=== PATIENT | male | born 1955 | race Caucasian/White ===

== ENCOUNTER 2023-04-23 16:30 | Inpatient (IN) | payer MEDICARE, OTHER ==
[2023-04-23] MEDS ORDERED: NITROGLYCERIN SL TABS 0.4 MG TAB SUBLINGUAL PRN (16:45)
[2023-04-23] MEDS ORDERED: HEPARIN SODIUM 1,000 UN/ML (10ML VL) IV PRN (16:47)
--- NOTE | 2023-04-23 16:55 | ED ---
General Adult HPI - General Chief complaint: Chest Pain Stated complaint: Chest Pain, Abn Labs Time Seen by Provider: 04/23/23 16:32 Source: EMS, RN notes reviewed, old records reviewed Mode of arrival: EMS Limitations: no limitations - History of Present Illness Initial comments: 67-year-old male transferred from outside hospital with chief complaint of chest pain and non-ST segment elevated IL with elevated troponin at 0.28 from outside hospital. Patient states he went to the hospital this morning around 10 AM with central left-sided chest pain. He has no prior history of coronary artery disease. He states he was given nitroglycerin and started on heparin and his pain is completely resolved at this time. He denies associated diaphoresis or vomiting. - Related Data Allergies Allergy/AdvReac Type Severity Reaction Status Date / Time No Known Allergies Allergy Verified 04/23/23 16:45 Review of Systems ROS Statement: Those systems with pertinent positive or pertinent negative responses have been documented in the HPI. ROS Other: All systems not noted in ROS Statement are negative. Past Medical History Past Medical History: Hyperlipidemia, Hypertension Past Surgical History: No Surgical Hx Reported Past Psychological History: No Psychological Hx Reported Smoking Status: Never smoker Past Alcohol Use History: None Reported Past Drug Use History: None Reported General Exam Limitations: no limitations General appearance: alert, in no apparent distress Head exam: Present: atraumatic, normocephalic Eye exam: Present: normal appearance, PERRL ENT exam: Present: normal exam Neck exam: Present: normal inspection. Absent: tenderness Respiratory exam: Present: normal lung sounds bilaterally. Absent: respiratory distress, wheezes Cardiovascular Exam: Present: regular rate, normal rhythm GI/Abdominal exam: Present: soft. Absent: distended, tenderness, guarding Extremities exam: Present: normal inspection, normal capillary refill Neurological exam: Present: alert, oriented X3, CN II-XII intact. Absent: motor sensory deficit Psychiatric exam: Present: normal affect, normal mood Skin exam: Present: warm, dry, intact. Absent: cyanosis, diaphoretic Course Vital Signs 04/23/23 16:39 Pulse Rate 71 Respiratory 18 Rate Blood Pressure 137/99 O2 Sat by Pulse 95 Oximetry Medical Decision Making - Medical Decision Making Was pt. sent in by a medical professional or institution (, PA, GENERAL FARM MANAGER, urgent care, hospital, or usp...) When possible be specific @ -Transfer from outside hospital with non-ST segment elevated IL Did you speak to anyone other than the patient for history (EMS, parent, family, police, friend...)? What history was obtained from this source @ -No Did you review nursing and triage notes (agree or disagree)? Why? @ -I reviewed and agree with nursing and triage notes Were old charts reviewed (outside hosp., previous admission, EMS record, old EKG, old radiological studies, urgent care reports/EKG's, usp records)? Report findings @ -No old charts were reviewed Differential Diagnosis (chest pain, altered mental status, abdominal pain women, abdominal pain men, vaginal bleeding, weakness, fever, dyspnea, syncope, headache, dizziness, GI bleed, back pain, seizure, CVA, palpatations, mental health, musculoskeletal)? @ -[Differential Chest Pain: Stable Angina, Unstable Angina, STEMI, NSTEMI Aortic Dissection, Pneumothorax, Musculoskeletal, Esophageal Spasm GERD, Cholecystitis, Pancreatitis, Zoster, this is not meant to be an all-inclusive list. EKG interpreted by me (3pts min.). @Sinus rhythm rate of 71, MT interval 152, QRS duration 85, QTC 4:[address] segment changes. X-rays interpreted by me (1pt min.). @ -None done CT interpreted by me (1pt min.). @ -None done U/S interpreted by me (1pt. min.). @ -None done What testing was considered but not performed or refused? (CT, X-rays, U/S, labs)? Why? @ -None What meds were considered but not given or refused? Why? @ -None Did you discuss the management of the patient with other professionals (professionals i.e. , PA, GENERAL FARM MANAGER, lab, RT, psych nurse, older adult social work specialist, umbrella cutter, teacher, highway patrol officer, onsite case manager)? Give summary @ -[facility], and Dr. Leblanc covering for cardiology Was smoking cessation discussed for >3mins.? @ -No Was critical care preformed (if so, how long)? @ -YES, 35 minutes Were there social determinants of health that impacted care today? How? (Homelessness, low income, unemployed, alcoholism, drug addiction, transportation, low edu. Level, literacy, decrease access to med. care, nursing home, rehab)? @ -No Was there de-escalation of care discussed even if they declined (Discuss DNR or withdrawal of care, Hospice)? DNR status @ -No What co-morbidities impacted this encounter? (DM, HTN, Smoking, COPD, CAD, Cancer, CVA, ARF, Chemo, Hep., AIDS, mental health diagnosis, sleep apnea, morbid obesity)? @ -None Was patient admitted / discharged? Hospital course, mention meds given and route, prescriptions, significant lab abnormalities, going to OR and other pertinent info. @ -[67-year-old male presenting as a non-ST segment elevated IL from outside hospital. Patient was started on heparin and he is chest pain-free at the time my evaluation. His troponin prior to transfer was 0.28. This level will be trended. He'll be continued on heparin with repeat laboratory testing pending her patient admitted to internal medicine with cardiology on consult. Undiagnosed new problem with uncertain prognosis? @ -No Drug Therapy requiring intensive monitoring for toxicity (Heparin, Nitro, Insulin, Cardizem)? @ -No Were any procedures done? @ -No Diagnosis/symptom? @ NSTEMI Acute, or Chronic, or Acute on Chronic? @ -[acute Uncomplicated (without systemic symptoms) or Complicated (systemic symptoms)? @ -[complicated Side effects of treatment? @ -No Exacerbation, Progression, or Severe Exacerbation? @ -No Poses a threat to life or bodily function? How? (Chest pain, USA, IL, pneumonia, PE, COPD, DKA, ARF, appy, cholecystitis, CVA, Diverticulitis, Homicidal, Suicidal, threat to staff... and all critical care pts) @ -[yes, ACS - Lab Data Result diagrams: 04/23/23 17:25 Disposition Clinical Impression: Acute non-ST elevation myocardial infarction (NSTEMI) Disposition: ADMITTED IP TO THIS HOSP Condition: Stable Is patient prescribed a controlled substance at d/c from ED?: No Time of Disposition: 18:03
[2023-04-23] MEDS ORDERED: HEPARIN SOD,PORK IN 0.45% NACL 25,000 UNIT in 0.45% NACL 1 250ML.BAG IV SCH (17:00)
[2023-04-23 17:45] LABS: Basophils % (A) 0 %; Eosinophils % (A) 0 %; HCT 42.2 % (39.0-53.0); HGB 14.5 gm/dL (13.0-17.5); Lymphocytes # (A) 2.8 k/uL (1.0-4.8); Lymphocytes % (A) 29 %; MCH 32.8 pg (25.0-35.0); MCHC 34.4 g/dL (31.0-37.0); MCV 95.3 fL (80.0-100.0); Mean Platelet Volume 7.3; Monocytes # (A) 0.4 k/uL (0-1.0); Monocytes % (A) 4 %; Neutrophils # (A) 6.3 k/uL (1.3-7.7); Neutrophils % (A) 64 %; Platelet Count 200 k/uL (150-450); RBC 4.43 m/uL (4.30-5.90); RDW 13.4 % (11.5-15.5); WBC 9.7 k/uL (3.8-10.6)
[2023-04-23 18:11] LABS: Prothrombin Time 11.1 sec (10.0-12.5)
[2023-04-23 18:38] LABS: Partial Thromboplastin Time 159.1 sec (22.0-30.0)
[2023-04-23 18:41] LABS: ALT 54 U/L (4-49); AST 66 U/L (17-59); African American GFR (CKD) >90 (>60 ml/min/1.73 sqM); Alkaline Phosphatase 54 U/L (38-126); Anion Gap 10 mmol/L; Blood Urea Nitrogen 15 mg/dL (9-20); Calcium 8.9 mg/dL (8.4-10.2); Carbon Dioxide 26 mmol/L (22-30); Chloride 100 mmol/L (98-107); Glucose 111 mg/dL (74-99); Magnesium 1.6 mg/dL (1.6-2.3); Non-African American GFR(CKD) >90 (>60 ml/min/1.73 sqM); Potassium 3.8 mmol/L (3.5-5.1); Sodium 136 mmol/L (137-145); Total Bilirubin 0.6 mg/dL (0.2-1.3); Total Protein 6.5 g/dL (6.3-8.2)
[2023-04-24 05:30] LABS: Basophils % (A) 0 %; Eosinophils # (A) 0.1 k/uL (0-0.7); Eosinophils % (A) 1 %; HCT 43.2 % (39.0-53.0); HGB 14.7 gm/dL (13.0-17.5); Lymphocytes # (A) 3.1 k/uL (1.0-4.8); Lymphocytes % (A) 33 %; MCH 32.5 pg (25.0-35.0); MCHC 33.9 g/dL (31.0-37.0); MCV 95.9 fL (80.0-100.0); Mean Platelet Volume 7.7; Monocytes # (A) 0.6 k/uL (0-1.0); Monocytes % (A) 6 %; Neutrophils # (A) 5.5 k/uL (1.3-7.7); Neutrophils % (A) 59 %; Platelet Count 207 k/uL (150-450); RBC 4.51 m/uL (4.30-5.90); RDW 13.5 % (11.5-15.5); WBC 9.4 k/uL (3.8-10.6)
[2023-04-24 06:11] LABS: Prothrombin Time 11.1 sec (10.0-12.5)
[2023-04-24] MEDS ORDERED: LORazepam 1 MG TAB PO PRN ×3 (07:31)
[2023-04-24] MEDS ORDERED: LORazepam 0.5 MG TAB PO PRN (07:31)
--- NOTE | 2023-04-24 07:33 | P.HPIM ---
History of Present Illness This is a pleasant 67 years old male with past medical history of Hyperlipidemia, Hypertension, arthritis Patient was transferred from [facility] for chest pain and has elevated troponin, he arrived on heparin drip He described his pain about 10/10 although currently is completely resolved undergone, started when day earlier, felt like center radiating to the back Patient described pain as break sitting on his chest. With no relieving or precipitating factors His pain was severe for about 10 minutes and then became more tolerable but persistent. Currently denies any urinary symptoms or change in bowel habits. No fever. No chills, no headache dizziness weakness or numbness. Patient denies smoking or illicit drugs. He drinks 2 cups of wine every night Vitas looks stable Labs reviewed showed an unremarkable CBC, basic metabolic panel. LFTs showing mildly elevation. High troponin 6.7, 8.8, 6.9 EKG showing sinus rhythm at [address]-T changes. QTC 415. On reviewing the records from [place] WBC 9.4, hemoglobin 15.2, platelet 202 Sodium 138, potassium 3.5, creatinine 1.0. Glucose is 106. Calcium 9.3. Lipase 101, magnesium 1.6. Bilirubin 0.5, AST 43 and ALT 53. Review of Systems Review of systems CONSTITUTIONAL: No fever, no malaise, no fatigue. HEENT: No recent visual problems or hearing problems. Denied any sore throat. CARDIOVASCULAR: No orthopnea, PND, no palpitations, no syncope. PULMONARY: No shortness of breath, no cough, no hemoptysis. GASTROINTESTINAL: No diarrhea, no nausea, no vomiting, no abdominal pain. Normoactive bowel sounds. NEUROLOGICAL: No headaches, no weakness, no numbness. HEMATOLOGICAL: Denies any bleeding or petechiae. GENITOURINARY: Denies any burning micturition, frequency, or urgency. MUSCULOSKELETAL/RHEUMATOLOGICAL: Denies any joint pain, swelling, or any muscle pain. ENDOCRINE: Denies any polyuria or polydipsia. Past Medical History Past Medical History: Hyperlipidemia, Hypertension History of Any Multi-Drug Resistant Organisms: None Reported Past Surgical History: No Surgical Hx Reported Past Psychological History: No Psychological Hx Reported Smoking Status: Never smoker Past Alcohol Use History: None Reported Past Drug Use History: None Reported Medications and Allergies Home Medications Medication Instructions Recorded Confirmed Type Atorvastatin [Lipitor] 40 mg PO DAILY 04/23/23 04/23/23 History Calcipotriene/Betamethasone 1 applic TOPICAL DAILY PRN 04/23/23 04/23/23 History [Calcipotriene-Betameth Dp Oint] Cholecalciferol [Vitamin D3 (125 125 mcg PO DAILY 04/23/23 04/23/23 History Mcg = 5000 Iu)] Concetta's Leg Cramps Sl Tabs 2 tab SL HS 04/23/23 04/23/23 History Metoprolol Succinate (ER) [Toprol 50 mg PO DAILY 04/23/23 04/23/23 History Xl] Naproxen Sodium [Aleve] 440 mg PO BID PRN 04/23/23 04/23/23 History Omeprazole [PriLOSEC] 20 mg PO DAILY 04/23/23 04/23/23 History Testosterone Cypionate 200 mg IM Q14D 04/23/23 04/23/23 History [Depo-Testosterone] amLODIPine [Norvasc] 10 mg PO DAILY 04/23/23 04/23/23 History buPROPion XL [Wellbutrin XL] 300 mg PO DAILY 04/23/23 04/23/23 History tadalafiL [Cialis] 20 mg PO DIRECTED PRN 04/23/23 04/23/23 History Allergies Allergy/AdvReac Type Severity Reaction Status Date / Time No Known Allergies Allergy Verified 04/23/23 18:53 Physical Exam Vitals: Vital Signs Pulse Resp BP Pulse Ox 04/24/23 03:45 65 18 127/91 95 04/24/23 02:00 73 18 129/87 96 04/24/23 01:00 77 17 133/84 94 L 04/23/23 19:00 76 16 130/90 95 04/23/23 18:45 74 10 L 132/98 95 04/23/23 18:30 77 17 122/88 95 04/23/23 18:15 69 9 L 129/92 95 04/23/23 18:00 130/91 97 04/23/23 17:45 131/94 94 L 04/23/23 17:30 128/89 95 04/23/23 17:15 130/90 96 04/23/23 17:00 129/77 96 04/23/23 16:45 137/99 95 04/23/23 16:43 97 04/23/23 16:39 71 18 137/99 95 Intake and Output 04/23/23 04/24/23 04/24/23 22:59 06:59 14:59 Intake Total 6.667 Balance 6.667 Intake: Intake, IV Titration 6.667 Amount Heparin Sod,Pork in 0.45% 6.667 NaCl 25,000 unit In 0.45 % NaCl 1 250ml.bag @ 9. 585 UNITS/KG/HR 10 mls/hr IV .Q24H [facility] Rx#: [id number] Other: Weight 104.326 kg 104.326 kg GENERAL: The patient is alert and oriented x3, not in any acute distress. Well developed, well nourished. HEENT: Pupils are round and equally reacting to light. EOMI. No scleral icterus. No conjunctival pallor. Normocephalic, atraumatic. No pharyngeal erythema. No thyromegaly. CARDIOVASCULAR: S1 and S2 present. No murmurs, rubs, or gallops. PULMONARY: Chest is clear to auscultation, no wheezing , no crackles. ABDOMEN: Soft, nontender, nondistended, normoactive bowel sounds. No palpable organomegaly. MUSCULOSKELETAL: No joint swelling or deformity. EXTREMITIES: No cyanosis, clubbing, or pedal edema. NEUROLOGICAL: Gross neurological examination did not reveal any focal deficits. SKIN: No rashes. no petechiae. Results CBC & Chem 7: 04/24/23 04:19 04/23/23 17:25 Labs: Abnormal Lab Results - Last 24 Hours (Table) 04/23/23 04/23/23 04/23/23 Range/Units 17:25 17:25 17:25 APTT 159.1 H* (22.0-30.0) sec Sodium 136 L (137-145) mmol/L Glucose 111 H (74-99) mg/dL AST 66 H (17-59) U/L ALT 54 H (4-49) U/L Troponin I 6.780 H* (0.000-0.034) ng/mL 04/23/23 04/24/23 Range/Units 19:59 04:19 APTT (22.0-30.0) sec Sodium (137-145) mmol/L Glucose (74-99) mg/dL AST (17-59) U/L ALT (4-49) U/L Troponin I 8.850 H* 6.900 H* (0.000-0.034) ng/mL Thrombosis Risk Factor Assmnt - Choose All That Apply Any of the Below Risk Factors Present?: Yes Each Factor Represents 1 point: Acute SD, Obesity (BMI >25) Other Risk Factors: Yes Each Risk Factor Represents 2 Points: Age 61-74 years Other congenital or acquired thrombophilia - If yes, enter type in comment: No Thrombosis Risk Factor Assessment Total Risk Factor Score: 4 Thrombosis Risk Factor Assessment Level: Moderate Risk Assessment and Plan Assessment: Chest pain suspicious for a non-STEMI Alcohol use disorder at-risk of alcohol withdrawal Hypertension Hyperlipidemia Arthritis Continue with heparin drip Continue with aspirin Continue with Metoprolol Cardiology consult Labs and medication were reviewed.. Continue same treatment. Continue with symptomatic treatment. Resume home medication. Monitor labs and vitals. DVT and GI prophylaxis. Further recommendations as per clinical course of the patient DVT prophylaxis: heparin GI Prophylaxis: Pepcid Prognosis is guarded
[2023-04-24] MEDS: METOPROLOL SUCCINATE (ER) 50 MG TAB.ER.24H PO SCH (08:36)
[2023-04-24] MEDS: buPROPion XL 300 MG TAB.ER.24H PO SCH (08:36)
[2023-04-24] MEDS: ASPIRIN 325 MG TAB PO SCH (08:36)
[2023-04-24] MEDS: THIAMINE 100 MG TAB PO SCH (08:36)
[2023-04-24] MEDS: FAMOTIDINE 20 MG/2 ML VIAL IV SCH ×2 (08:37→20:27)
[2023-04-24] MEDS: ATORVASTATIN 40 MG TAB PO SCH (08:39)
[2023-04-24] MEDS: NITROGLYCERIN OINT 1 INCH/GM PACKET TOPICAL SCH ×3 (08:42→16:09)
[2023-04-24] MEDS ORDERED: VERAPAMIL 2.5 MG/ML 2 ML AMP ONE (08:49)
[2023-04-24] MEDS ORDERED: LIDOCAINE 1% INJ 10MG/ML (20 ML MDV) ONE (08:49)
[2023-04-24 08:51] LABS: Chol/HDL Ratio 3.42 Ratio; LDL Cholesterol,Calculated 68.8 mg/dL (0.0-131.0)
[2023-04-24] MEDS ORDERED: ASPIRIN 325 MG TAB PO STA (08:52)
[2023-04-24] MEDS ORDERED: ATORVASTATIN 80 MG TAB PO STA (08:52)
[2023-04-24] MEDS ORDERED: ALPRAZolam 0.5 MG TAB PO PRN (08:52)
[2023-04-24] MEDS ORDERED: NITROGLYCERIN SL TABS 0.4 MG TAB SUBLINGUAL PRN (08:52)
[2023-04-24] MEDS ORDERED: ALPRAZolam 0.25 MG TAB PO PRN (08:52)
[2023-04-24] MEDS ORDERED: IV FLUID CONTINUATION 1,000 ML IV ONE (08:59)
[2023-04-24] MEDS ORDERED: HEPARIN SODIUM 1,000 UN/ML (10ML VL) ONE (09:12)
[2023-04-24] MEDS ORDERED: fentaNYL (PF) 50 MCG/ML 2 ML AMP ONE (09:12)
[2023-04-24] MEDS: MIDAZOLAM 2 MG/2 ML VIAL IVP ONE ×2 (09:28→10:25)
[2023-04-24] MEDS: fentaNYL (PF) 50 MCG/1 ML VIAL IVP ONE ×2 (09:28→10:24)
[2023-04-24] MEDS ORDERED: LIDOCAINE 1% INJ 10MG/ML (20 ML MDV) SQ ONE (09:29)
[2023-04-24] MEDS ORDERED: VERAPAMIL SYRINGE (5 MG/10 ML) INTRAARTER ONE (09:33)
[2023-04-24] MEDS: HEPARIN SODIUM 1,000 UN/ML (10ML VL) IV ONE ×5 (09:37→11:01)
--- NOTE | 2023-04-24 09:59 | CONS ---
CONSULTATION CHIEF COMPLAINT: Chest pain. HISTORY OF PRESENT ILLNESS: Mr. Flores is a 67-year-old gentleman with history of hypertension, dyslipidemia, and erectile dysfunction who presented to [facility] with an episode of chest pain. The patient was sitting in one place playing video games and had sudden onset of chest pain. He describes it as a pressure and burning-like chest pain across his precordium, it was severe in intensity. Went to the emergency room where they started him on IV heparin following which he gradually became chest pain-free along with nitroglycerin paste. His EKG showed sinus rhythm with nonspecific ST-T wave changes. He has had troponins that were elevated due to which he was transferred to [facility]. Since coming here, he has had 3 sets of troponins. The first one was 6.7, second one was 8.8, and the third one was 6.9. At the time of my evaluation this morning, he is chest pain-free and hemodynamically stable. The patient recently had routine physical evaluation and was found to have a heart murmur and was told that he has mild aortic stenosis. An echocardiogram done at [place] revealed mild aortic stenosis with normal LV systolic function. Laboratory data show that the hemoglobin is 14.7, platelet count is 207, creatinine is 0.8, and potassium is 3.8. Given the patient's clinical presentation is consistent with acute [id number] elevation MA, I advised the patient to undergo emergent cardiac catheterization and has been explained of risks, benefits, and alternatives. PAST MEDICAL HISTORY: Significant for hypertension, dyslipidemia, and possible bicuspid aortic valve with aortic stenosis. MEDICATIONS: At home include, 1. Cialis. 2. Wellbutrin. 3. Norvasc 10 daily. 4. Prilosec. 5. Aleve. 6. Toprol-XL. 7. Lipitor. ALLERGIES: There are no known drug allergies. FAMILY HISTORY: Negative for premature coronary artery disease. SOCIAL HISTORY: Negative for smoking, EtOH abuse, or drug abuse. REVIEW OF SYSTEMS: HEENT: Unremarkable. CARDIAC: As described above. RESPIRATORY: As described above. GI: Negative. GENITOURINARY: Negative. ALLERGY/IMMUNOLOGY: Negative. SKIN: Negative. MUSCULOSKELETAL: Significant for arthritis. PSYCHOSOCIAL: Negative. DERM: Negative. CONSTITUTIONAL: Negative. ONCOLOGICAL: Negative. RHINOLOGIST: Negative. Rest of the system review is not relevant. PHYSICAL EXAMINATION: GENERAL: The patient appears comfortable at rest. VITAL SIGNS: Look stable. NECK: There is no jugular venous distention. Carotid upstroke is normal. There is no bruit. CHEST: Reveals good air entry bilaterally. HEART: Reveals first and second heart sounds, an ejection systolic murmur in the right parasternal border. ABDOMEN: Soft. EXTREMITIES: Did not reveal any edema. Peripheral pulses are felt. RHINOLOGIST: Did not reveal focal neurological deficits. ASSESSMENT: 1. Acute etw-FA-ucnmkap elevation MA. 2. Bicuspid aortic valve. 3. Hypertension. 4. Dyslipidemia. PLAN: I advised the patient to undergo emergent cardiac catheterization. I will treat the patient with aspirin, Lipitor, beta blockers, and nitrates in the meantime. MMODL / IJN: [id number] /
[2023-04-24] MEDS ORDERED: TICAGRELOR 90 MG TAB ONE (10:05)
[2023-04-24] MEDS ORDERED: TICAGRELOR 90 MG TAB PO ONE (10:08)
[2023-04-24] MEDS ORDERED: NITROGLYCERIN 1000MCG/10ML SYRINGE INTRACORON ONE (10:45)
[2023-04-24] MEDS ORDERED: IOPAMIDOL-370 100ML BTL INJ ONE ×2 (10:51)
[2023-04-24] MEDS ORDERED: [UNRECOGNIZED DRUG - OTHER] TOPICAL PRN (11:33)
[2023-04-24] MEDS ORDERED: CALCIPOTRIENE TOPICAL PRN (11:33)
[2023-04-24] MEDS ORDERED: BETAMETHASONE TOPICAL PRN (11:33)
[2023-04-24] MEDS ORDERED: ATROPINE SULFATE 0.1 MG/ML 10ML SYRINGE IV PRN (11:34)
[2023-04-24] MEDS ORDERED: ZOLPIDEM 5 MG TAB PO PRN (11:34)
[2023-04-24] MEDS ORDERED: RX INFO: IV CONTRAST WAS GIVEN 1 EACH MISC MISCELLANE PRN (11:34)
[2023-04-24] MEDS ORDERED: MAG HYDROX/AL HYDROX/SIMETH 30 ML CUP PO PRN (11:34)
--- NOTE | 2023-04-24 11:34 | CC ---
CARDIAC CATHETERIZATION REPORT INDICATIONS: Acute pbo-QL-[id number] elevation CA. PROCEDURE NOTE: After obtaining informed consent, left heart catheterization and coronary angiogram were performed via the right radial artery using standard Bala catheters. The patient tolerated the procedure well without any obvious immediate complications. The patient received moderate conscious sedation. Total sedation time was 26 minutes. Right radial artery access was obtained using Seldinger technique. A 6-English sheath was placed. Catheters and wires were floated into the ascending aorta under fluoroscopic guidance. The patient received verapamil and heparin per protocol. FINDINGS: 1. Right Coronary Artery: Right coronary artery appears heavily calcified, shows chronic occlusion in the proximal right coronary artery. Rest of the RCA appears diffusely diseased. 2. Left Main Coronary Artery: Appears calcified but is free of significant stenosis, divides into left anterior descending coronary artery and circumflex coronary artery. Circumflex coronary artery shows rnmn-in-npxlxvkw nonobstructive disease. LAD is heavily calcified. In the mid LAD, there is a 40% to 50% stenosis. It is unclear if this lesion is more significant than we think it is. CONCLUSION: Severe disease involving the ostial and proximal portion of the right coronary artery, which seems chronic and moderate stenosis involving LAD where the lesion is probably most significant than we think it is visually or he could have had a plaque rupture. I reviewed angiographic data with Dr. Harding, the available tax commissioner who will assess the hemodynamic significance of this lesion and if necessary proceed with angioplasty of the same. JORDIN / AUNDREA: [id number] /
--- NOTE | 2023-04-24 11:44 | LTR ---
Dear Dr. Caicedo: I performed cardiac catheterization on Pacheco Flores. A detailed catheterization note is enclosed with the letter. In brief, Mr. Flores presented to us with acute ksb-YB-boahnnv elevation HI and the cardiac catheterization revealed severe 2-vessel coronary artery disease involving LAD and right coronary artery. Right coronary artery lesion seems more chronic. We will assess the hemodynamic significance of the LAD lesion and to proceed with intervention. Thank you for giving us the privilege to participate in the care of your patient. Sincerely, JORDIN / RUPERTN: [id number] /
[2023-04-24] MEDS: amLODIPine 10 MG TAB PO SCH (12:34)
[2023-04-24] MEDS: CHOLECALCIFEROL 125 MCG (5000 IU) TABLET PO SCH (12:34)
[2023-04-24] MEDS: SODIUM CHLORIDE 0.9% 1,000 ML in EMPTY BAG 1 BAG IV SCH ×2 (14:20→22:11)
[2023-04-24 14:23] VITALS: BMI 33.0
[2023-04-24] MEDS: PANTOPRAZOLE 40 MG TABLET PO SCH (15:32)
[2023-04-24] MEDS: TICAGRELOR 90 MG TAB PO SCH (20:26)
[2023-04-24] MEDS: HEPARIN SODIUM,PORCINE 5,000 UNIT/ML 1 ML VIAL SQ SCH (20:27)
[2023-04-25] MEDS: NITROGLYCERIN OINT 1 INCH/GM PACKET TOPICAL SCH ×3 (00:04→11:33)
[2023-04-25] MEDS: PANTOPRAZOLE 40 MG TABLET PO SCH (06:29)
[2023-04-25] MEDS ORDERED: HEPARIN SODIUM,PORCINE 10,000 UNIT in SODIUM CHLORIDE 0.9% 1,000 ML IRRIGATION PRN (07:00)
[2023-04-25] MEDS ORDERED: HEPARIN SODIUM,PORCINE (1 ML) 2,500 UNIT in SODIUM CHLORIDE 0.9% 250 ML IRRIGATION PRN (07:00)
[2023-04-25] MEDS ORDERED: PANTOPRAZOLE 40 MG TABLET PO SCH (07:30)
[2023-04-25] MEDS: FAMOTIDINE 20 MG/2 ML VIAL IV SCH (07:37)
[2023-04-25] MEDS: CHOLECALCIFEROL 125 MCG (5000 IU) TABLET PO SCH (07:46)
[2023-04-25] MEDS: TICAGRELOR 90 MG TAB PO SCH (07:46)
[2023-04-25] MEDS: METOPROLOL SUCCINATE (ER) 50 MG TAB.ER.24H PO SCH (07:46)
[2023-04-25] MEDS: ATORVASTATIN 40 MG TAB PO SCH (07:46)
[2023-04-25] MEDS: THIAMINE 100 MG TAB PO SCH (07:47)
[2023-04-25] MEDS: buPROPion XL 300 MG TAB.ER.24H PO SCH (07:47)
[2023-04-25] MEDS: amLODIPine 10 MG TAB PO SCH (07:47)
[2023-04-25 08:00] VITALS: TEMP 98.1
[2023-04-25 09:27] LABS: Basophils % (A) 0 %; Eosinophils # (A) 0.1 k/uL (0-0.7); Eosinophils % (A) 1 %; HCT 46.1 % (39.0-53.0); HGB 15.4 gm/dL (13.0-17.5); Lymphocytes # (A) 2.6 k/uL (1.0-4.8); Lymphocytes % (A) 27 %; MCH 32.9 pg (25.0-35.0); MCHC 33.4 g/dL (31.0-37.0); MCV 98.3 fL (80.0-100.0); Mean Platelet Volume 7.5; Monocytes # (A) 0.5 k/uL (0-1.0); Monocytes % (A) 5 %; Neutrophils # (A) 6.4 k/uL (1.3-7.7); Neutrophils % (A) 66 %; Platelet Count 218 k/uL (150-450); RBC 4.69 m/uL (4.30-5.90); RDW 13.6 % (11.5-15.5); WBC 9.7 k/uL (3.8-10.6)
[2023-04-25 09:34] LABS: African American GFR (CKD) >90 (>60 ml/min/1.73 sqM); Anion Gap 13 mmol/L; Blood Urea Nitrogen 14 mg/dL (9-20); Calcium 9.3 mg/dL (8.4-10.2); Carbon Dioxide 24 mmol/L (22-30); Chloride 103 mmol/L (98-107); Glucose 131 mg/dL (74-99); Non-African American GFR(CKD) 84 (>60 ml/min/1.73 sqM); Potassium 3.5 mmol/L (3.5-5.1); Sodium 140 mmol/L (137-145)
[2023-04-25] MEDS: ASPIRIN 325 MG TAB PO SCH (09:52)
[2023-04-25] MEDS: HEPARIN SODIUM,PORCINE 5,000 UNIT/ML 1 ML VIAL SQ SCH (09:53)
[2023-04-25 11:55] VITALS: BP 117/65; PULSE 67; RESP 17
--- NOTE | 2023-04-25 13:50 | P.PN ---
Subjective Progress Note Date: 04/25/23 SUBJECTIVE: Patient is doing well from cardiac vessel standpoint. He denies having any active chest pain chest pressure shortness of breath. He is hemodynamically stable. He is status post left heart catheterization via right radial approach with no postoperative complications. Right radial artery is intact with no signs of hematoma or bleeding. Good pulses distally. He got PCI to his RCA. He had a borderline 40-50% mid LAD stenosis which was tested hemodynamically insignificant with ifr PHYSICAL EXAMINATION Vital signs reviewed. Head: Normocephalic. Eyes: Sclerae nonicteric. Neck: Brisk carotid upstroke, no jugular venous distention. Lungs: Clear to auscultation. Heart: Regular rate and rhythm, S1-S2, no S3, no murmur or rub. Abdomen: Soft nontender, positive bowel sounds no organomegaly. Extremities: No edema, intact distal pulses. ASSESSMENT Nstemi Status post PCI to RCA Mod mid LAD disease PLAN Aspirin 81 mg, Brilinta 90 mg twice a day, atorvastatin 80mg metoprolol 25 mg BID Check BP and signs of bleeding at home okay to d/c educated about cardiac symptoms to watch put for f/u with Dr Griffin Objective - Vital Signs Vital signs: Vital Signs Temp 98.1 F 04/25/23 07:51 Pulse 67 04/25/23 11:48 Resp 17 04/25/23 11:48 BP 117/65 04/25/23 11:48 Pulse Ox 97 04/25/23 11:48 FiO2 Intake & Output 04/24/23 04/25/23 04/25/23 18:59 06:59 18:59 Intake Total 1149.5 540 118 Balance 1149.5 540 118 Weight 104.326 kg Intake: IV 250 Intake, IV Titration 99.5 Amount Heparin Sod,Pork in 0.45% 99.5 NaCl 25,000 unit In 0.45 % NaCl 1 250ml.bag @ 9. 585 UNITS/KG/HR 10 mls/hr IV .Q24H [facility] Rx#: [id number] Oral 800 540 118 Other: Voiding Method Toilet Toilet Toilet # Voids 2 2 3 - Labs CBC & Chem 7: 04/25/23 08:59 04/25/23 08:59 Labs: Abnormal Lab Results - Last 24 Hours (Table) 12/30/23 Range/Units 08:59 Glucose 131 H (74-99) mg/dL
--- NOTE | 2023-04-25 23:02 | P.DS ---
Providers Date of admission: 04/23/23 16:45 Attending physician: Kwasi Shen Consults: 04/23/23 16:45 Consult Physician Urgent Consulting Provider: Cristhian Griffin Consult Reason/Comments: nstemi Do you want consulting provider notified?: Yes 04/24/23 11:34 Consult Physician Routine Consulting Provider: [facility] Consult Reason/Comments: Post Interventional Patient Do you want consulting provider notified?: Already Contacted Primary care physician: Gonzales [facility] Hospital Course: Diagnoses: Chest pain suspicious for a non-STEMI Alcohol use disorder at-risk of alcohol withdrawal Hypertension Hyperlipidemia Arthritis Hospital course: This is a pleasant 67 years old male with past medical history of Hyperlipidemia, Hypertension, arthritis Patient was transferred from [facility] for chest pain and has elevated troponin, she was evaluated by giver underwent cardiac cath and PCI to RCA. Patient tolerated procedure well. Chest pain resolved no other new c omplaints and patient was cleared for discharge by giver on dual antiplatelet therapy with aspirin and brillinta Importance of aggressive treatment explained, risks and benefits explained and he verbalized understanding and acceptance Patient was eager to go home today. Problems and management plan were discussed with the patient and he verbalized understanding and acceptance Patient was found stable and can be discharged home in guarded prognosis however he needs follow-up as an outpatient. Patient was instructed to follow up with PCP Dr. Shi within one week and patient agrees Director Maternal Child Dr. Griffin and wants to weeks in the office and he agrees. Physical exam Gen: patient is a AAOx3, no distress CVS: S1-S2, RRR, no murmur Lungs: B/L CTA, no wheezing Abdomen: soft, no distention, no tenderness, positive bowel sounds Extremity: no leg edema or induration Time spent more than 35 minutes Patient Condition at Discharge: Stable Plan - Discharge Summary Discharge Rx Participant: Yes New Discharge Prescriptions: New Aspirin 81 mg PO DAILY #30 tab Ticagrelor [Brilinta] 90 mg PO BID #60 tab Thiamine [Vitamin B-1] 100 mg PO DAILY #30 tab Continue Cholecalciferol [Vitamin D3 (125 Mcg = 5000 Iu)] 125 mcg PO DAILY Calcipotriene/Betamethasone [Calcipotriene-Betameth Dp Oint] 1 applic TOPICAL DAILY PRN PRN Reason: knees & elbows Testosterone Cypionate [Depo-Testosterone] 200 mg IM Q14D buPROPion XL [Wellbutrin XL] 300 mg PO DAILY Omeprazole [PriLOSEC] 20 mg PO DAILY Metoprolol Succinate (ER) [Toprol XL] 50 mg PO DAILY amLODIPine [Norvasc] 10 mg PO DAILY Atorvastatin [Lipitor] 40 mg PO DAILY Concetta's Leg Cramps Sl Tabs 2 tab SL HS Discontinued Naproxen Sodium [Aleve] 440 mg PO BID PRN PRN Reason: Pain No Action tadalafiL [Cialis] 20 mg PO DIRECTED PRN PRN Reason: E.D. Discharge Medication List Atorvastatin [Lipitor] 40 mg PO DAILY 04/23/23 [History] Calcipotriene/Betamethasone [Calcipotriene-Betameth Dp Oint] 1 applic TOPICAL DAILY PRN 04/23/23 [History] Cholecalciferol [Vitamin D3 (125 Mcg = 5000 Iu)] 125 mcg PO DAILY 04/23/23 [History] Concetta's Leg Cramps Sl Tabs 2 tab SL HS 04/23/23 [History] Metoprolol Succinate (ER) [Toprol XL] 50 mg PO DAILY 04/23/23 [History] Omeprazole [PriLOSEC] 20 mg PO DAILY 04/23/23 [History] Testosterone Cypionate [Depo-Testosterone] 200 mg IM Q14D 04/23/23 [History] amLODIPine [Norvasc] 10 mg PO DAILY 04/23/23 [History] buPROPion XL [Wellbutrin XL] 300 mg PO DAILY 04/23/23 [History] tadalafiL [Cialis] 20 mg PO DIRECTED PRN 04/23/23 [History] Aspirin 81 mg PO DAILY #30 tab 04/25/23 [Rx] Thiamine [Vitamin B-1] 100 mg PO DAILY #30 tab 04/25/23 [Rx] Ticagrelor [Brilinta] 90 mg PO BID #60 tab 04/25/23 [Rx] Follow up Appointment(s)/Referral(s): Gonzales Shi MD [Primary Care Provider] - 1-2 days (please call to schedule follow up tell them you were discharged from [facility] 04/25 for nstemi with heart cath) Cristhian Griffin MD [STAFF PHYSICIAN] - 1 Week (please call to schedule follow up tell them you were discharged from [facility] 04/25 for nstemi with heart cath) Patient Instructions/Handouts: *Surgery [facility] - After Heart Catheterization - [employer] Instructions Activity/Diet/Wound Care/Special Instructions: heart healthy diet activity is restricted till you see your doctor Discharge Disposition: HOME SELF-CARE
== END 2023-04-25 14:31 | disposition home or self-care (01) | DRG 322 ==
LOC: EC 16:30 → 3SCARD 16:45
PROVIDERS: ADMIT Hospitalist; ATTEND Hospitalist
PROC: 4A023N7 Measurement of Cardiac Sampling and Pressure, Left Heart, Percutaneous Approach (ICD-10-PCS; principal; 2023-04-24 09:12)
PROC: 027034Z Dilation of Coronary Artery, One Artery with Drug-eluting Intraluminal Device, Percutaneous Approach (ICD-10-PCS; principal; 2023-04-24 09:12)
PROC: B2111ZZ Fluoroscopy of Multiple Coronary Arteries using Low Osmolar Contrast (ICD-10-PCS; 2023-04-24 09:12)
DX: I21.4 Non-ST elevation (NSTEMI) myocardial infarction (principal); F10.139 Alcohol abuse with withdrawal, unspecified; Q23.1 Congenital insufficiency of aortic valve; I25.119 Atherosclerotic heart disease of native coronary artery with unspecified angina pectoris; I10 Essential (primary) hypertension; E78.5 Hyperlipidemia, unspecified; M19.90 Unspecified osteoarthritis, unspecified site; Z79.899 Other long term (current) drug therapy; Z98.61 Coronary angioplasty status
CPT/HCPCS: 36415; 80048; 80053; 80061; 83735; 84484; 85025; 85610; 85730; 93005; 96365; 96366; 96375; 99291

== ENCOUNTER → 2023-05-06 | Outpatient (CLI) | payer MEDICARE, OTHER ==
--- NOTE | 2023-05-08 07:06 | MR ---
EXAMINATION TYPE: MR shoulder RT wo con DATE OF EXAM: 05/06/2023 COMPARISON: None HISTORY: Right shoulder pain for 6 months with difficulty raising arm overhead. Rotator cuff disorder is suspected. TECHNIQUE: Multiplanar, multisequence imaging of the right shoulder is performed without contrast. FINDINGS: Exam is suboptimal as there is significant motion artifact degradation. Rotator Cuff: Full thickness retracted tear of the supraspinatus tendon coronal image 16 series 401. Increased signal in the infraspinatus tendon with surrounding fluid. Subscapularis tendon intact with surrounding fluid. Rotator cuff muscle bulk is preserved. Acromioclavicular Joint: Moderate to severe narrowing with subchondral cystic change. Glenohumeral Joint: Moderate to large size joint effusion. High positioned humeral head. Inferior gle nohumeral joint narrowing. Labrum: The labrum appears grossly intact given limitation of non-arthrogram study. Biceps Tendon: The long head of biceps is in normal location within bicipital groove. Bone marrow signal: No focal abnormal marrow signal is appreciated. Other: No additional significant abnormality is appreciated. IMPRESSION: Suboptimal study but there is full-thickness retracted tear of the supraspinatus tendon. High position humeral head suggests underlying instability. Tendinosis/partial tearing of the infrasp inatus tendon. Large sized joint effusion. Fairly moderate to advanced degenerative changes are prese nt as detailed above.
== END | disposition home or self-care (01) ==
LOC: RADMRIMAIN 20:15
PROVIDERS: ATTEND Family Medicine
DX: M19.011 Primary osteoarthritis, right shoulder (principal); M75.121 Complete rotator cuff tear or rupture of right shoulder, not specified as traumatic; M67.813 Other specified disorders of tendon, right shoulder; M25.411 Effusion, right shoulder

== ENCOUNTER → 2024-03-21 | Outpatient (CLI) | payer MEDICARE ==
[2024-03-21 18:42] LABS: HCT 42.8 % (39.6-50.0); HGB 14.6 g/dL (13.0-17.0); MCH 31.7 pg (27.0-32.0); MCHC 34.1 g/dL (32.0-37.0); Mean Platelet Volume 10.4 FL (9.5-12.2); NRBC Per 100 WBC 0 X 10*3/uL (0.00-0.01); Platelet Count 222 X 10*3/uL (140-440); RDW 13.9 % (11.5-14.5); WBC 6.22 X 10*3/uL (4.50-10.00)
[2024-03-21 18:54] LABS: Blood Urea Nitrogen 20.8 mg/dL (9.0-27.0); Calcium 9.7 mg/dL (8.7-10.3); Carbon Dioxide 27.7 mmol/L (21.6-31.8); Chloride 103 mmol/L (96-109); Glucose 107 mg/dL (70-110); Potassium 4.9 mmol/L (3.5-5.5); Sodium 142 mmol/L (135-145)
[2024-03-21 23:51] LABS: NT-Pro-B-Type Natriuretic Pept 94 pg/mL (0-125)
== END | disposition home or self-care (01) ==
LOC: LABWHC1 15:09
PROVIDERS: ATTEND Internal Medicine Cardiovascular Disease
DX: I50.31 Acute diastolic (congestive) heart failure (principal)
CPT/HCPCS: 36415; 80048; 83880; 84443; 85027

== ENCOUNTER → 2024-04-29 | Outpatient (CLI) | payer MEDICARE ==
[2024-04-29 20:03] LABS: BUN/Creat Ratio 16.75 Ratio (12.00-20.00); Blood Urea Nitrogen 20.1 mg/dL (9.0-27.0); Calcium 9.2 mg/dL (8.7-10.3); Carbon Dioxide 27.3 mmol/L (21.6-31.8); Chloride 105 mmol/L (96-109); Glucose 87 mg/dL (70-110); Potassium 4.1 mmol/L (3.5-5.5); Sodium 143 mmol/L (135-145)
== END | disposition home or self-care (01) ==
LOC: LABWHC1 15:58
PROVIDERS: ATTEND Internal Medicine Cardiovascular Disease
DX: I50.32 Chronic diastolic (congestive) heart failure (principal)
CPT/HCPCS: 36415; 80048